=== PATIENT | male | born 1955 | race Caucasian/White ===

== ENCOUNTER → 2016-06-12 | Outpatient (CLI) | payer OTHER ==
[2016-06-12 16:29] LABS: CALCIUM 9.4 MG/DL (8.5-10.1); PHOSPHORUS 3.4 MG/DL (2.3-4.7)
[2016-06-12 16:51] LABS: THYROID STIMULATING HORMONE 1.13 UIU/ML (0.35-4.94)
[2016-06-14 07:10] LABS: CALCIUM PARA THYROID HORMONE 9.2 mg/dL (8.5-10.5)
== END ==
LOC: LAB 15:44
PROVIDERS: ATTEND Orthopaedic Surgery Orthopaedic Trauma
DX: S82.251K Displaced comminuted fracture of shaft of right tibia, subsequent encounter for closed fracture with nonunion (principal); T84.498D Other mechanical complication of other internal orthopedic devices, implants and grafts, subsequent encounter
CPT/HCPCS: 36415; 82306; 82310; 83970; 84100; 84443